=== PATIENT | male | born 1990 | race Two or more races ===

== ENCOUNTER 2024-02-16 14:04 | Emergency (ER) | payer MEDICAID, SELFPAY ==
--- NOTE | 2024-02-16 14:16 | XR_ITS ---
Examination: Abdomen sonogram, Limited Date and time of exam: February 16, 2024 1559 hours INDICATIONS: Fever vomiting beginning 2 days ago Technique: Real-time garnica scale transabdominal sonographic images of the upper abdomen obtained. Findings: Negative for gallstones Gallbladder wall 0.3 cm small areas of fluid adjacent to the gallbladder wall Common bile duct 0.6 cm only partly visualized no stones Pancreatic head 2.7 cm Liver 16.7 cm fatty infiltration no focal liver lesions Normal hepatopedal portal venous flow Patent IVC IMPRESSION: Small areas of fluid along the gallbladder wall, enlarged common bile duct 0.6 cm, consider MRCP follow-up to exclude cholecystitis and to exclude stones in the common bile duct
--- NOTE | 2024-02-16 14:16 | PD.EDRME ---
Rapid Medical Screening Exam RME Arrival date/time: 02/16/24 14:04 33-year-old male presents the emergency department complains of upper abdominal pain nausea vomiting Chief Complaint: Nausea/Vomiting/Diarrhea
[2024-02-16 14:20] VITALS: BP 151/107; BP 163/105; PULSE 100; RESP 19; TEMP 36.9; O2SAT 98; BMI 33.6
--- NOTE | 2024-02-16 14:26 | PC.NURSE ---
no answer x 1 at [id number]
[2024-02-16] MEDS: ONDANSETRON ODT 4 MG TABRAP PO (14:27)
[2024-02-16 14:37] LABS: Basophils % (Auto) 0 % (0-2.5); Eosinophils % (Auto) 0 % (0-10); Hemoglobin 17.3 g/dL (13.5-16.0); Immature Granulocytes % (Auto) 0 % (0-0); Immature Granulocytes Auto 0.02 Thou/mm3 (0.00-0.00); Lymphocytes % (Auto) 13 % (10-50); Mean Corpuscular HGB Conc 35.3 g/dl (31.0-37.0); Mean Corpuscular Hemoglobin 30.8 pg (25.0-35.0); Mean Corpuscular Volume 87 fL (80-100); Monocytes % (Auto) 14 % (0-12); Neutrophils # (Auto) 5.2 Thou/mm3 (1.8-7.7); Neutrophils % (Auto) 72 % (37-80); Nucleated Red Blood Cell % 0 /100 WBC (0); Platelet Count 296 Thou/mm3 (140-440); RDW Standard Deviation 40.9 fL (35.1-43.9); Red Blood Count 5.61 Miln/mm3 (4.50-5.90); White Blood Count 7.3 Thou/mm3 (3.8-10.6)
[2024-02-16 14:50] LABS: Alanine Aminotransferase 68 U/L (10-49); Albumin, Serum 5.5 gm/dL (3.5-5.0); Albumin/Globulin Ratio 1.8 (1.2-2.2); Alkaline Phosphatase 98 U/L (46-116); Anion Gap 9 (7-16); Aspartate Amino Transferase 50 U/L (0-34); BUN/Creatinine Ratio 11 Ratio (12-20); Bilirubin,Total 0.8 mg/dL (0.3-1.2); Blood Urea Nitrogen 13 mg/dL (9-23); Calcium 9.6 mg/dL (8.3-10.6); Calcium (Corrected) 9.6 mg/dL (8.5-10.1); Carbon Dioxide 29.5 mMol/L (20.0-31.0); Chloride 98 mMol/L (98-107); Creatinine (Component) 1.2 mg/dL (0.6-1.3); Estimated Creatinine Clearance 102.8 mL/min (>60); Glucose 77 mg/dL (74-106); Lipase 35 U/L (12-53); Osmolality,Calculated 271 (275-295); Potassium 3.6 mMol/L (3.4-5.1); Sodium 136 mMol/L (136-145); Total Protein 8.5 gm/dL (5.7-8.2); eGFR > 60 See Note
[2024-02-16 14:57] LABS: Collection Type, Urine Clean Catch; Squamous Epithelial Cell,Urine 0 /hpf (0-5)
[2024-02-16 15:17] LABS: Bilirubin,Urine Negative (Negative); Blood,Urine Trace (Negative); Clarity,Urine Clear (Clear/Hazy); Color,Urine Yellow (Lt Yel-Yel); Culture Indicated,Urine Not Indicated; Glucose, Urine Trace (Negative); Hyaline Casts,Urine < 1 /hpf (0-1); Ketones,Urine 3+ (Negative); Leukocyte Esterase,Urine Negative (Negative); Nitrite,Urine Negative (Negative); Protein,Urine 1+ (Neg - Trace); RBC,Urine 3 /hpf (0-3); Specific Gravity,Urine 1.038 (1.001-1.035); WBC,Urine 9 /hpf (0-5)
[2024-02-16 17:07] VITALS: BP 143/84; PULSE 107; RESP 19; TEMP 37.5; O2SAT 95
--- NOTE | 2024-02-16 17:20 | EDNOTE_ITS ---
Nausea/Vomit./Diarrhea-E/HPI General Chief complaint: Nausea/Vomiting/Diarrhea Stated complaint: Vomiting X 2 days, fever Time Seen by Provider: 02/16/24 17:12 Arrival date/time: 02/16/24 14:04 RME / HPI RME / HPI Narrative: 33-year-old male patient, with no significant medical history, came in for evaluation regarding vomiting. Patient's been having vomiting, diarrhea, and on and off low-grade fever since yesterday. Patient also complained of upper abdominal pain described as dull ache, severity mild. Patient denies any blood in the vomitus. Denies any other complaints. No Medications taken prior travel. Related Data Previous Rx's ?Medication ?Instructions ?Recorded acetaminophen 500 mg tablet 1,000 mg (2 x 500 mg) PO Q6H PRN 02/23/22 (Tylenol Extra Strength) fever or pain #30 tabs ibuprofen 800 mg tablet 800 mg PO TID PRN pain #30 tabs 11/24/23 ondansetron HCl 8 mg tablet 8 mg PO TID PRN nausea and 02/16/24 vomiting 5 days #20 tabs Allergies Allergy/AdvReac Type Severity Reaction Status Date / Time No Known Allergies Allergy Verified 12/04/23 20:04 Review of Systems Review of Systems Narrative Review of Systems: Review of system reviewed and within normal limits except mentioned in HPI ED Exam Narrative Physical exam: VITAL SIGNS: Reviewed. GENERAL APPEARANCE: Alert and interactive, follows commands, no acute distress, HEAD AND FACE: Non-traumatic. ENT: PERRL, pink conjunctivitis, eyelid no trauma, Mucous membrane moist. NECK: Supple, nontender, no nuchal rigidity. CHEST: No tenderness, no crepitus, no paradoxical movement, no retractions. LUNGS: Clear, well ventilated, symmetric, no rales, no wheezing, no ronchi, no stridor, good breath sounds bilaterally. HEART: Regular rate, regular rhythm, no murmur, no gallops. ABDOMEN: Soft, positive bowel sounds, nondistended, no guarding, upper abdominal tenderness, no rebound, no masses, RECTAL: Deferred. GENITAL: Deferred. NEUROLOGICAL: Gross motor function intact sensory function intact, Appropriate for age. MUSCULOSKELETAL: low back nontender, full range of motion. EXTREMITIES: Nontender, full range of motion. SKIN: Color pink, dry, no rash, no lacerations, no abrasions, no contusions. LYMPHATICS: Deferred. Course Quality Measures none Orders Category Date Time Status US gall bladder Stat Exams 02/16/24 14:16 Taken CBC Stat Lab 02/16/24 14:23 Completed Comprehensive Metabolic Panel Stat Lab 02/16/24 14:23 Completed Lipase Stat Lab 02/16/24 14:23 Completed UA, C/S IF [Urinalysis, C/S if Indicated] Stat Lab 02/16/24 14:28 Completed Ondansetron Odt [Zofran Odt] Med 02/16/24 14:16 Discontinued 4 mg PO X1 ONE Vital Signs Vital signs: Vital Signs Temperature 98.4 F 02/16/24 14:20 Pulse Rate 100 02/16/24 14:20 Respiratory Rate 19 02/16/24 14:20 Blood Pressure 151/107 H 02/16/24 14:20 Pulse Oximetry (%) 98 02/16/24 14:20 Oxygen Delivery Method Room Air 02/16/24 14:20 Nausea/Vomiting/Diarrhea MDM Narrative MDM Narrative:: Patient's workup today all came back unremarkable CBC no leukocytosis noted. Urinalysis no UTI. Ultrasound of the abdomen showed no cholelithiasis noted. Results discussed with the patient. Patient data External records reviewed:: None Clinical information provided by:: none Social determinants that could affect healthcare access:: none Patient has the following chronic illnesses:: None How is presenting disease/condition affected by chronic disease/condition?: no chronic disease Evaluation data The following diagnostics were reviewed and interpreted by me:: radiology exam(s) Lab and/or radiology exams considered but not ordered:: None Interpretation Summary: Patient's workup today all came back normal ultrasound gallbladder came back unremarkable. Medications / Prescriptions Medications / Prescriptions considered but not ordered:: None Medication administrations:: Medication Administration History Discontinued Medications Ondansetron HCl (Ondansetron Odt 4 Mg Tabrap) 4 mg PO X1 ONE; Protocol Stop: 02/16/24 14:17 Last Admin: 02/16/24 14:27 Dose: 4 mg Documented By: AD carolina Consultations Consultation(s) initiated? (list below): No Diagnosis Nausea Differential Diagnosis: gastroenteritis, dehydration and other (Food poisoning) Most likely diagnosis given after review of the tests above:: Gastroenteritis Admission Indicated Admission indicated?: not indicated Admission Request Was there a request for admission?: No Disposition Plan Disposition Plan: Discharge Discharge Attestation Discharge Attestation: The patient was given an opportunity to ask questions and understood the discharge instructions. Discharge instructions specifically effects, indications for sooner follow up or return to the emergency department, and the expected course of current diagnosis. Patient condition: Stable Discharge Plan Plan Patient Disposition: HOME (Self Care) Disposition Comment: stable Prescriptions/Referrals Prescriptions/Med Rec: New ondansetron HCl 8 mg tablet 8 mg PO TID PRN (Reason: nausea and vomiting) 5 Days Qty: 20 0RF No Action acetaminophen [Tylenol Extra Strength] 500 mg tablet 1,000 mg PO Q6H PRN (Reason: fever or pain) Qty: 30 0RF ibuprofen 800 mg tablet 800 mg PO TID PRN (Reason: pain) Qty: 30 0RF Referrals: Cody Lee PA-C [Primary Care Provider] - In 1 week Problem List Clinical Impression: Gastroenteritis Patient/Caregiver Discharge Instructions Discharge Activity: activity as tolerated Education Materials: How the Colon Works Additional Instructions: Thank you for the opportunity for serving you today. You are stable for dischar ged . You are advised to: Follow-up with your PCP in 1 to 2 days Return to ED for worsening of symptoms Increase oral fluids including Pedialyte Take medication as prescribed Print Language: Ghanaian Stand Alone Forms: Patsy Award Info., Patient Portal Info Letter ZAINAB/HARMONY Supervising Physician XENA Supervising Physician: MD Lula
== END 2024-02-16 17:28 | disposition home or self-care (01) ==
PROVIDERS: Nurse Practitioner Primary Care; Emergency Provider Emergency Medicine; PCP Physician Assistant
DX: K52.9 Noninfective gastroenteritis and colitis, unspecified (principal)
CPT/HCPCS: 36415; 76705; 80053; 81001; 83690; 85025; 99284; Q0162

== ENCOUNTER 2024-03-19 17:25 | Emergency (ER) | payer MEDICAID, SELFPAY ==
[2024-03-19 17:35] VITALS: BP 156/103; PULSE 80; RESP 18; TEMP 36.8; O2SAT 97; BMI 33.0
[2024-03-19] MEDS: TETRACAINE PF OP SOL 0.5% 4 ML DRPETTE 1 DROP LEFT EYE (17:46)
[2024-03-19] MEDS: FLUORESCEIN SOD 1 MG STRP LEFT EYE (17:46)
--- NOTE | 2024-03-19 17:55 | EDNOTE_ITS ---
ED Eye Problem RME/HPI General Chief complaint: Eye Problems Stated complaint: RIGHT EYE PAIN Time Seen by Provider: 03/19/24 17:55 Source: patient Arrival date/time: 03/19/24 17:25 33-year-old male with no known medical history presents to the emergency room with a chief complaint of right eye irritation, pain after he was using a seesaw 1 hour ago. Mode of arrival: ambulatory Limitations: no limitations Related Data Previous Rx's ?Medication ?Instructions ?Recorded acetaminophen 500 mg tablet 1,000 mg (2 x 500 mg) PO Q6H PRN 02/23/22 (Tylenol Extra Strength) fever or pain #30 tabs ibuprofen 800 mg tablet 800 mg PO TID PRN pain #30 tabs 11/24/23 ciprofloxacin HCl 0.3 % eye drops See Rx Instructions ophthalmic 03/19/24 (eye) .COMPLEX #5 mL Allergies Allergy/AdvReac Type Severity Reaction Status Date / Time No Known Allergies Allergy Verified 12/04/23 20:04 Review of Systems Review of Systems Systems Reviewed: All systems reviewed, normal except as documented Constitutional Constitutional: Reports system reviewed and no additional complaints, except as documented, Denies fatigue, Denies fever(s), Denies headache(s) and Denies weakness Eyes Eyes: Reports system reviewed and no additional complaints, except as documented, Denies blind spots, Reports blurry vision, Denies change in vision, Denies decreased night vision, Denies diplopia, Denies eye discharge, Denies dry eyes, Denies exophthalmos, Denies floaters, Reports irritation, Denies loss of peripheral vision, Denies loss of vision, Denies eye pain, Reports photophobia, Denies seeing flashes, Denies spots in vision and Denies tunnel vision ENT Ears, Nose, Mouth, and Throat: Reports system reviewed and no additional complaints, except as documented, Denies otalgia, Denies headache(s), Denies nasal congestion, Denies throat swelling and Denies vertigo Cardiovascular Cardiovascular: Reports system reviewed and no additional complaints, except as documented, Denies chest pain, Denies dyspnea and Denies dyspnea on exertion Respiratory Respiratory: Reports system reviewed and no additional complaints, except as documented, Denies chest congestion, Denies cough, Denies dyspnea, Denies dyspnea on exertion and Denies wheezing Gastrointestinal Gastrointestinal: Reports system reviewed and no additional complaints, except as documented, Denies abdominal pain, Denies cramping, Denies nausea and Denies vomiting Genitourinary Genitourinary: Reports system reviewed and no additional complaints, except as documented, Denies dysuria and Denies hematuria Musculoskeletal Musculoskeletal: Reports system reviewed and no additional complaints, except as documented and Denies back pain Integumentary/Breasts Skin/Breast: Reports system reviewed and no additional complaints, except as documented and Denies wounds Neurologic Neurologic: Reports system reviewed and no additional complaints, except as documented, Denies confusion, Denies headache(s), Denies lack of coordination, Denies loss of vision, Denies vertigo and Denies weakness Psychiatric Psychiatric: Reports system reviewed and no additional complaints, except as documented, Denies anxiety, Denies confusion, Denies depression, Denies paranoia, Denies suicidal ideation and Denies tactile hallucinations Endocrine Endocrine: Reports system reviewed and no additional complaints, except as documented and Denies fatigue Hematologic/Lymphatic Hematologic/Lymphatic: Reports system reviewed and no additional complaints, except as documented and Denies lymphadenopathy Allergic/Immunologic Allergic/Immunologic: Reports system reviewed and no additional complaints, except as documented, Denies throat swelling, Denies urticaria and Denies wheezing ED Exam General Limitations: Present no limitations General appearance: Present alert and in no apparent distress Head Head exam: Present atraumatic Eye Eye exam: Present normal appearance, PERRL and EOMI Expanded Eye Exam Eyelids: left: normal inspection and right: erythema Pupils: Right: regular, round and reactive Sclera/Conjunctival: right: tenderness ENT ENT exam: Present normal exam, normal oropharynx and mucous membranes moist Neck Neck exam: Present normal inspection, full ROM and trachea midline Chest Chest inspection: Present normal inspection and symmetric chest wall rise Respiratory Respiratory exam: Present normal lung sounds bilaterally Cardiovascular Cardiovascular exam: Present regular rate, normal rhythm and normal heart sounds Abdominal Exam Abdominal exam: Present soft and normal bowel sounds Extremities Exam Extremities exam: Present normal inspection and full ROM Back Exam Back exam: Present normal inspection and full ROM Neurological Exam Neurological exam: Present alert, oriented X3 and CN II-XII intact Psychiatric Psychiatric exam: Present normal affect and normal mood Skin Skin exam: Present warm, dry, intact and normal color Course Quality Measures none Orders Category Date Time Status ED Eye Irrigation ONCE Care 03/19/24 17:39 Active Visual Acuity X1 Care 03/19/24 17:39 Active Gallegos Lamp to Bedside X1 Care 03/19/24 17:39 Active Fluorescein Sodium [Zwiue-R-Kiawe] Med 03/19/24 17:39 Discontinued 1 mg LEFT EYE X1 ONE TETRACAINE Op Cee 0.5% [Pontocaine Op Cee 0.5%] Med 03/19/24 17:39 Discontinued 1 drop LEFT EYE X1 ONE Vital Signs Vital signs: Vital Signs Temperature 98.2 F 03/19/24 17:35 Pulse Rate 80 03/19/24 17:35 Respiratory Rate 18 03/19/24 17:35 Blood Pressure 156/103 H 03/19/24 17:35 Pulse Oximetry (%) 97 03/19/24 17:35 Oxygen Delivery Method Room Air 03/19/24 17:35 Eye MDM Narrative MDM Narrative:: 33-year-old male with no known medical history presents to the emergency room with a chief complaint of right eye irritation, pain after he was using a seesaw 1 hour ago. Clinically the patient appears nontoxic and in no apparent distress. Physical examination shows an irritated right eye with tenderness to the area. Patient denies any loss of vision loss of peripheral vision spots in the vision and states that his only symptom is a little blurry vision and some irritation and feeling like there is something in there. A Gallegos lamp was used to examine the eye and showed a corneal abrasion. There is no foreign body in the eye there is no corneal ulcer no hyphema no rust ring no Sidel sign. The eye is irritated and antibiotics are sent to the patient's pharmacy patient was educated to pick them up and take them as indicated. Patient was educated to follow-up with his primary care provider in the next 24 to 48 hours and with an agile business analyst if symptoms get worse. Patient was educated to return to the emergency room for any evidence of worsening signs or symptoms Patient data External records reviewed:: [facility] previous records Clinical information provided by:: patient Social determinants that could affect healthcare access:: none Patient has the following chronic illnesses:: No chronic illness How is presenting disease/condition affected by chronic disease/condition?: no chronic disease Evaluation data The following diagnostics were reviewed and interpreted by me:: lab results and radiology exam(s) Lab and/or radiology exams considered but not ordered:: Labs and radiology exams considered and ordered Interpretation Summary: N/A Medications / Prescriptions Medications or Prescriptions considered but not ordered:: Rx given Medication administrations:: Medication Administration History Discontinued Medications Fluorescein Sodium (Fluorescein Sod 1 Mg Strp) 1 mg LEFT EYE X1 ONE Stop: 03/19/24 17:40 Last Admin: 03/19/24 17:46 Dose: 1 mg Documented By: Tetracaine HCl (Tetracaine Pf Op Cee 0.5% 4 Ml Drpette) 1 drop LEFT EYE X1 ONE Stop: 03/19/24 17:40 Last Admin: 03/19/24 17:46 Dose: 1 drop Documented By: Rx given Consultations Consultation(s) initiated? (list below): No Diagnosis Eye Problem Differential Diagnosis: corneal abrasion, conjunctivitis, acute iritis, hyphema and corneal ulcer Most likely diagnosis given after review of the tests above:: Corneal abrasion Admission Indicated Admission indicated?: not indicated Admission Request Was there a request for admission?: No Disposition Plan Disposition Plan: Discharge Discharge Attestation Discharge Attestation: The patient and all family members were given an opportunity to ask questions and understood the discharge instructions. Discharge instructions specifically effects, indications for sooner follow up or return to the emergency department, and the expected course of current diagnosis. Patient condition: Stable Discharge Plan Plan Patient Disposition: HOME (Self Care) Disposition Comment: Stable Prescriptions/Referrals Prescriptions/Med Rec: New ciprofloxacin HCl 0.3 % drops See Rx Instructions .ROUTE .COMPLEX Qty: 5 0RF Rx Instructions: put 1-2 drps in affected eye(s) every 2hr up to 8 times/day x2days; then 4 times/day x5days No Action acetaminophen [Tylenol Extra Strength] 500 mg tablet 1,000 mg PO Q6H PRN (Reason: fever or pain) Qty: 30 0RF ibuprofen 800 mg tablet 800 mg PO TID PRN (Reason: pain) Qty: 30 0RF Problem List Clinical Impression: Corneal abrasion Patient/Caregiver Discharge Instructions Education Materials: ED Corneal Abrasion Additional Instructions: Please follow-up with your primary care provider in the next 24 to 48 hours. Antibiotics are sent to your pharmacy please pick them up and take them as indicated. For any evidence of worsening signs or symptoms please return to the emergency room immediately Print Language: Persian Stand Alone Forms: Patsy Award Info., Work/School Release, Patient Portal Info Letter ZAINAB/HARMONY Supervising Physician ZAINAB/HARMONY Supervising Physician: Dr Hargrove
== END 2024-03-19 18:06 | disposition home or self-care (01) ==
PROVIDERS: Emergency Provider Emergency Medicine; PCP Physician Assistant
DX: S05.01XA Injury of conjunctiva and corneal abrasion without foreign body, right eye, initial encounter (principal); X58.XXXA Exposure to other specified factors, initial encounter
CPT/HCPCS: 99283